=== PATIENT | male | born 2000 | race Caucasian/White ===

== ENCOUNTER 2021-11-11 00:07 | Emergency (ER) | payer SELFPAY ==
[~2021-11-11] VITALS: Ht 182.8 cm; Wt 82.3 kg
[2021-11-11 00:23] VITALS: BP 135/87
--- NOTE | 2021-11-11 00:32 | ED GI ---
General Chief Complaint: Abdominal/GI Problems Stated Complaint: VOMITING BLOOD;INDIGESTION Nursing Triage Note: PT ARRIVAL TO ER WITH FRIEND WHO IS ALSO CHECKED IN A PATIENT WITH COMPLAINT OF POSSIBLY VOMITING BLOOD. PT STATES THAT HE HAS ISSUES WITH HIS STOMACH PRODUCING TOO MUCH STOMACH ACID. PT STATES THAT HE OFTEN TIMES WILL THROW UP, BUT TODAY HE VOMITED AND BELIEVES IT COULD OF BEEN BLOOD IN THE VOMIT. PT PRESENTS PICTURE AND IT APPEARS TO BE BRIGHT ORANGE IN COLOR. ASKED PATIENT WHAT HE HAS ATE TODAY AND HE STATES SPAGHETTI. PT DENIES PAIN OR NAUSEA AT THIS TIME. Source of Information: Patient History of Present Illness Date Seen by Provider: Nov 11, 2021 Time Seen by Provider: 00:21 Initial Comments PT ARRIVES VIA POV FROM HOME STATES THAT HE THINKS HE VOMITED BLOOD--JUST PRIOR TO ARRIVAL PT STATES HE SOMETIMES GETS ACID REFLUX SYMPTOMS AND SOMETIMES HE THROWS UP WITH IT, ESPECIALLY IF HE EATS PASTA/SPICY FOODS HE ATE SPAGHETTI PLUS [employer] TONIGHT FOR DINNER JUST PRIOR TO ARRIVAL HE BEGAN HAVING SOME ACID REFLUX SYMPTOMS AND HE THREW UP A LITTLE BIT IN THE TOILET AND TOOK A PICTURE OF IT. PICTURE IS OF BRIGHT ORANGE MUCOUS-TYPE MATERIAL FLOATING ON THE SURFACE OF THE TOILET WATER PT HAS NO ABDOMINAL PAIN AND NO SYMPTOMS OF ANY KIND NOW DOES NOT TAKE ANY MEDICATIONS OF ANY KIND AND HAS NEVER TAKEN ANYTHING FOR THESE SYMPTOMS PCP: NONE Allergies and Home Medications Patient Home Medication List Home Medication List Reviewed: Yes Pantoprazole Sodium (Protonix) 40 Mg Tablet.dr 40 MG PO DAILY Prescribed by: KARYNA DUMONT on 11/11/21 0036 Review of Systems Review of Systems Constitutional: no symptoms reported Gastrointestinal: See HPI Past Zdtqfdy-Fwwczf-Krwwyu Hx Patient Social History Tobacco Use?: Yes Tobacco type used: Cigarettes Smoking Status: Heavy Tobacco Smoker Use of E-Cig and/or Vaping dev: No Substance use?: No Alcohol Use?: No Pt feels they are or have been: No Immunizations Up To Date Influenza Vaccine Up-to-Date: Yes; Up-to-Date Past Medical History Surgeries: Yes (WISDOM TEETH REMOVED) Respiratory: No Cardiac: No Neurological: No Genitourinary: No Gastrointestinal: Yes (GERD SYMPTOMS--NO TESTS OR TREATMENT) Musculoskeletal: No Endocrine: No HEENT: No Cancer: No Psychosocial: No Integumentary: No Blood Disorders: No Physical Exam Vital Signs Vital Signs - First Documented 11/11/21 00:23 Temp 36.4 Pulse 103 Resp 14 B/P (MAP) 135/87 (103) Pulse Ox 97 O2 Delivery Room Air Capillary Refill : Less Than 3 Seconds Height/Weight/BMI Height: '" Weight: lbs. oz. 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 Decision time for Depature: 00:35 Referrals: NO,LOCAL PHYSICIAN (PCP) Primary Care Physician Patient Instructions: Acid Reflux and GERD in Adults (DC) Add. Discharge Instructions: NO SPICY, GREASY, HIGH FAT OR ACIDIC FOODS OR DRINKS FOLLOW UP WITH OF CHOICE IF SYMPTOMS PERSIST All discharge instructions reviewed with patient and/or family. Voiced understanding. Scripts Pantoprazole Sodium (Protonix) 40 Mg Tablet. 40 MG PO DAILY, #15 TAB Prov: KARYNA DUMONT DO 11/11/21 KARYNA DUMONT DO Nov 11, 2021 00:32
[2021-11-11] MEDS ORDERED: PANT40TA2 PO (00:36)
== END 2021-11-11 00:39 | disposition home or self-care (01) ==
LOC: ER 00:12
DX: R11.10 Vomiting, unspecified (principal); F17.210 Nicotine dependence, cigarettes, uncomplicated
CPT/HCPCS: 99281